=== PATIENT | male | born 1995 | race Caucasian/White ===

== ENCOUNTER 2019-02-25 17:52 | Emergency (ER) | payer OTHER ==
[~2019-02-25] VITALS: Ht 185.4 cm; Wt 71.7 kg
[2019-02-25] MEDS ORDERED: IBUPROFEN 600 MG TABLET. PO ONE (18:30)
[2019-02-25] MEDS ORDERED: ONDANSETRON ODT 4 MG TAB.RAPDIS PO ONE (18:30)
--- NOTE | 2019-02-25 18:32 | PHYS DOC ---
Past History Past Medical History: No Pertinent History Past Surgical History: Tonsillectomy Alcohol Use: None Drug Use: None Adult General Chief Complaint Chief Complaint: FLU SYMPTOM HPI HPI Patient is a 23-year-old male presenting with 3 days now of body aches fever coughing sore throat headache just not feeling well overall does have intermittent vomiting and diarrhea as well. Cannot get the flu shot due to allergy with it. Symptoms are moderate no relief with [id number] agents Review of Systems Review of Systems Constitutional: D \ Integument: Denies rash or skin lesions [] Neurologic: Denies focal weakness or sensory changes [] Endocrine: Denies polyuria or polydipsia [] All other systems were reviewed and found to be within normal limits, except as documented in this note. Current Medications Current Medications Current Medications Medications (Trade) Dose Ordered Sig/Kevin Start Time Stop Time Status Last Admin Dose Admin Ibuprofen (Motrin) 600 mg 1X ONCE 02/25/19 18:30 02/25/19 18:31 Ondansetron HCl (Zofran Odt) 4 mg 1X ONCE 02/25/19 18:30 02/25/19 18:31 Allergies Allergies Allergies Uncoded Allergies Type Severity Reaction Last Updated Verified FLU SHOT Allergy Unknown 02/25/19 Physical Exam Physical Exam Constitutional: Well developed, well nourished, no acute distress, non-toxic appearance. [] HENT: Normocephalic, atraumatic, bilateral external ears normal, oropharynx moist, no oral exudates, nose normal. [] Eyes: PERRLA, EOMI, conjunctiva normal, no discharge. [] Neck: Normal range of motion, no tenderness, supple, no stridor. [] Cardiovascular:Heart rate regular rhythm, no murmur [] Lungs & Thorax: Bilateral breath sounds clear to auscultation [] Abdomen: Bowel sounds normal, soft, no tenderness, no masses, no pulsatile masses. [] Skin: Warm, dry, no erythema, no rash. [] Back: No tenderness, no CVA tenderness. [] Extremities: No tenderness, no cyanosis, no clubbing, ROM intact, no edema. [] Neurologic: Alert and oriented X 3, normal motor function, normal sensory function, no focal deficits noted. [] Psychologic: Affect normal, judgement normal, mood normal. [] Current Patient Data Vital Signs Vital Signs Date Time Temp Pulse Resp B/P (MAP) Pulse Ox O2 Delivery O2 Flow Rate FiO2 02/25/19 18:05 99.0 88 18 97 Room Air EKG EKG [] Radiology/Procedures Radiology/Procedures [] Impressions: Laboratory data chest x-ray was negative acute. Course & Med Decision Making Course & Med Decision Making Pertinent Labs and Imaging studies reviewed. (See chart for details) []Very well-appearing young man presenting with flulike symptoms out of the treatment window vitals are reassuring get chest x-ray to rule out bacterial pneumonia otherwise reassurance was provided symptomatically treatment given in the emergency room Dragon Disclaimer Dragon Disclaimer This electronic medical record was generated, in whole or in part, using a voice recognition dictation system. Departure Departure: Impression: Primary Impression: Influenza-like illness Disposition: HOME, SELF-CARE Condition: STABLE Referrals: PCP,NO (PCP) Scripts Ondansetron (ONDANSETRON ODT) 4 Mg Tab.rapdis 1 TAB PO PRN Q6-8HRS PRN for NAUSEA/VOMITING, #16 TAB Prov: NIGHAT SANTIAGO MD 02/25/19 NIGHAT SANTIAGO MD Feb 25, 2019 18:32
[2019-02-25] MEDS ORDERED: ONDA4TAB12 PO (18:49)
--- NOTE | 2019-02-25 19:07 | RAD ---
AP chest. HISTORY: Fever AP view was taken of the chest. Lungs are clear. Heart is normal in size. There is no pleural effusion. IMPRESSION: 1. No acute chest disease. Electronically signed by: Sina Palmer MD (02/25/2019 7:04 PM) [facility]
[2019-02-25 19:13] VITALS: BP 138/83
== END 2019-02-25 19:10 | disposition home or self-care (01) ==
LOC: ER 17:52
DX: J11.1 Influenza due to unidentified influenza virus with other respiratory manifestations (principal); Z90.89 Acquired absence of other organs; Z88.8 Allergy status to other drugs, medicaments and biological substances
CPT/HCPCS: 71045; 99283; Q0162